=== PATIENT | male | born 1995 | race African-American/Black ===

== ENCOUNTER 2016-09-14 21:06 | Emergency (ER) | payer MEDICAID, OTHER ==
[~2016-09-14 21:06] MED LIST: OMEP20CA5 PO; Z.0.NO CURRENT MEDS
[2016-09-14 21:09] VITALS: BP 141/91; PULSE 62; RESP 16; TEMP 97.6; O2SAT 100
[2016-09-14] MEDS ORDERED: DIPHTH/TETANUS/ACEL PERTUSSIS (BOOSTER) 0.5 ML VIAL/PFS IM ONE (23:45)
--- NOTE | 2016-09-14 23:52 | PD ---
HPI Chief Complaint: Laceration/Skin Injury Time Seen by Provider: 23:43 Travel History International Travel<30 days: No Contact w/Intl Traveler<30days: No Traveled to known affect area: No History of Present Illness HPI WHILE CUTTING PIECE OF PLUMBING PIPE, ACCIDENTALLY CUT HIS HAND AREA, LAST TETANUS>5YRS AGO, ABLE TO MOVE THUMB, NOT ACTIVELY BLEEDING ANYMORE. PFSH Past Medical History Asthma: Yes Developmental Delay: No Diminished Hearing: No Immunizations Current: Yes Ulcer: Yes Past Surgical History Tonsillectomy: Yes Social History Alcohol Use: No Tobacco Use: No (quit 4 days ago) Substance Use: No Allergies-Medications (Allergen,Severity, Reaction): Coded Allergies: Iodine (Verified Allergy, Severe, Anaphylaxis, 09/14/16) Reported Meds & Prescriptions Reported Meds & Active Scripts Active Prilosec (Omeprazole) 20 Mg Capcr 20 Mg PO DAILY Reported No Current Meds (Miscellaneous Medication) Misc Review of Systems Except as stated in HPI: all other systems reviewed are Neg Skin: Positive Other (LACERATION TO LEFT THUMB PAD AREA) Physical Exam Narrative GENERAL: SKIN: Warm and dry. 4 CM LAC TO LEFT THENAR AREA, NOT ACTIVELY BLEEDING, NVI, ABLE TO CIRCUMDUCT THUMB AND FULL STRENGTH IN ALL PLANES OF MOVEMENT (NO TENDON INJURY) HEAD: Atraumatic. Normocephalic. EYES: Pupils equal and round. No scleral icterus. No injection or drainage. ENT: No nasal bleeding or discharge. Mucous membranes pink and moist. NECK: Trachea midline. No JVD. CARDIOVASCULAR: Regular rate and rhythm. RESPIRATORY: No accessory muscle use. Clear to auscultation. Breath sounds equal bilaterally. GASTROINTESTINAL: Abdomen soft, non-tender, nondistended. Hepatic and splenic margins not palpable. MUSCULOSKELETAL: Extremities without clubbing, cyanosis, or edema. No obvious deformities. NEUROLOGICAL: Awake and alert. No obvious cranial nerve deficits. Motor grossly within normal limits. Five out of 5 muscle strength in the arms and legs. Normal speech. PSYCHIATRIC: Appropriate mood and affect; insight and judgment normal. Data Data Last Documented VS Vital Signs Date Time Temp Pulse Resp B/P Pulse Ox O2 Delivery O2 Flow Rate FiO2 09/14/16 21:09 97.6 62 16 141/91 100 Room Air Orders Cdmd-Lzk-Aircem (Booster) Inj (Boostrix (09/14/16 23:45) Wound Care (09/14/16 23:44) MDM Medical Decision Making Medical Screen Exam Complete: Yes Emergency Medical Condition: Yes Medical Record Reviewed: Yes Differential Diagnosis LACERATION (TENDON V NERVE V MUSCLE TEAR/INJURY) Narrative Course PATIENT NOTED TO HAVE INTACT TENDON, NVI, AND ONLY HAS SUPERFICIAL LACERATION...WHICH WAS REPAIRED Procedures Procedure Narrative LACERATION LOCATION: [LEFT THENAR REGION] LENGTH: [4CM-] NUMBER OF STITCHES/XANDER: [3] REPAIR: The area of the laceration was prepped with Betadine and sterilely draped. The laceration was infiltrated with [4 ML OF LIDOCAINE WITH EPI 1%]. The wound was copiously irrigated and explored without evidence of foreign body , tendon injury or neurovascular injury. The wound was closed using [PROLENE 4- 0]. This was a [SINGLE] layer repair. A sterile dressing was applied. The patient was advised to keep the dressing clean and dry. Patient tolerated the procedure well. Diagnosis Primary Impression: LEFT THENAR LACERATION S/P SUTURE REPAIR Patient Instructions: General Instructions, Laceration (ED) Additional Instructions: RETURN IN 7 DAYS TO HAVE YOUR SUTURES REMOVED Disposition: 01 DISCHARGE HOME Condition: Stable Zander Delatorre MD Sep 14, 2016 23:52
== END 2016-09-15 00:06 | disposition home or self-care (01) ==
LOC: NEPD 21:06
DX: S61.412A Laceration without foreign body of left hand, initial encounter (principal); W26.9XXA Contact with unspecified sharp object(s), initial encounter; Z23 Encounter for immunization; J45.909 Unspecified asthma, uncomplicated
CPT/HCPCS: 12002; 90471; 90715